=== PATIENT | female | born 1930 | race African-American/Black ===

== ENCOUNTER 2017-01-16 09:47 | Outpatient (CLI) | payer MEDICARE ==
--- NOTE | 2017-01-17 07:42 | RAD ---
LUMBAR SPINE THREE VIEWS 01/16/17 Scoliosis is present convexed right. A degenerated disc is prominent at L3-L4 with a vacuum phenomen on. No acute fracture was seen. The disc spaces are not particularly narrowed. The SI joints were un remarkable. Small osteophytes are seen at many levels. IMPRESSION: Scoliosis and mild degenerative change for age. Degenerated disc at L3-L4. POS: HOME
== END 2017-01-16 09:48 | disposition home or self-care (01) ==
LOC: BURRAD 09:47
PROVIDERS: ATTEND Family Medicine
DX: M54.5 Low back pain (principal); G89.29 Other chronic pain; M47.816 Spondylosis without myelopathy or radiculopathy, lumbar region; M51.36 Other intervertebral disc degeneration, lumbar region; M41.9 Scoliosis, unspecified
CPT/HCPCS: 72100

== ENCOUNTER 2017-02-01 11:35 | Outpatient (CLI) | payer MEDICARE ==
[2017-02-01 12:20] LABS: Anion Gap 12 mmol/L (10-20); BUN (Urea Nitrogen) 33 mg/dL (9.8-20.1); Calc. Creatinine Clearance 0 mL/min (70-130); Calcium 9.3 mg/dL (7.8-10.44); Carbon Dioxide 25 mmol/L (23-31); Chloride 108 mmol/L (98-107); Estimated GFR-MDRD 56; Glucose 88 mg/dL (83-110); Potassium 4.2 mmol/L (3.5-5.1); Sodium 141 mmol/L (136-145)
== END 2017-02-01 11:36 | disposition home or self-care (01) ==
LOC: BURLAB 11:35
PROVIDERS: ATTEND Internal Medicine Cardiovascular Disease
DX: I35.1 Nonrheumatic aortic (valve) insufficiency (principal); I48.0 Paroxysmal atrial fibrillation; I10 Essential (primary) hypertension
CPT/HCPCS: 36415; 80048

== ENCOUNTER 2017-02-21 06:06 | Emergency (ER) | payer MEDICARE | END 2017-02-21 06:42 | disposition home or self-care (01) | LOC: BURERS 06:06 | DX: I10 Essential (primary) hypertension (principal); I49.9 Cardiac arrhythmia, unspecified; I48.91 Unspecified atrial fibrillation; Z79.01 Long term (current) use of anticoagulants; Z79.899 Other long term (current) drug therapy ==

== ENCOUNTER 2017-02-25 17:56 | Emergency (ER) | payer MEDICARE | END 2017-02-25 18:25 | disposition home or self-care (01) | LOC: BURERS 17:56 | DX: I10 Essential (primary) hypertension (principal); I48.91 Unspecified atrial fibrillation; Z79.1 Long term (current) use of non-steroidal anti-inflammatories (NSAID); Z79.899 Other long term (current) drug therapy | CPT/HCPCS: 99283 ==

== ENCOUNTER 2018-07-29 10:59 | Emergency (ER) | payer MEDICARE ==
--- NOTE | 2018-07-29 13:36 | RAD ---
LEFT KNEE 4 VIEWS: Date: 07/29/18 No acute fracture appreciated, but there is some joint fluid. Degenerative changes are present in the knee joint and patellofemoral joint consisting of osteophytes. Meniscal calcifications are also appa rent. IMPRESSION: 1. Joint fluid. 2. No acute bony changes, but chronic degenerative and calcific changes were seen. POS: HOME
--- NOTE | 2018-07-29 13:50 | RAD ---
RIGHT KNEE 4 VIEWS: Date: 07/29/18 A small joint effusion is seen. No fracture evident. Degenerative changes are present in the knee marco a nt and patellofemoral joint consisting of osteophytes. IMPRESSION: Joint fluid and chronic changes, but no acute fractures. POS: HOME
== END 2018-07-29 11:58 | disposition home or self-care (01) ==
LOC: BURERS 10:59
DX: S80.02XA Contusion of left knee, initial encounter (principal); E03.9 Hypothyroidism, unspecified; I48.91 Unspecified atrial fibrillation; I10 Essential (primary) hypertension; Z79.899 Other long term (current) drug therapy; W19.XXXA Unspecified fall, initial encounter

== ENCOUNTER 2018-08-29 12:55 | Emergency (ER) | payer MEDICARE | END 2018-08-29 15:47 | disposition home or self-care (01) | LOC: BURERS 12:55 | DX: I10 Essential (primary) hypertension (principal); E03.9 Hypothyroidism, unspecified; I48.91 Unspecified atrial fibrillation; Z79.899 Other long term (current) drug therapy | CPT/HCPCS: 99283 ==